=== PATIENT | male | born 1930 | race Caucasian/White ===

== ENCOUNTER 2021-09-12 23:00 | Emergency (ER) | payer OTHER, MEDICARE ==
[2021-09-12 23:17] VITALS: BP 175/96; PULSE 88; TEMP 98.1; BMI 27.4
== END 2021-09-13 02:24 | disposition home or self-care (01) ==
LOC: JER 23:00
DX: R42 Dizziness and giddiness (principal); W19.XXXA Unspecified fall, initial encounter
CPT/HCPCS: 70450-TC; 72125-TC; 93005; 93010; 99284-25

== ENCOUNTER → 2021-12-12 | Day surgery (SDC) | payer OTHER, MEDICARE | END | disposition home or self-care (01) | LOC: JRADIR 13:12 | PROVIDERS: ATTEND Internal Medicine Endocrinology, Diabetes & Metabolism | PROC: 0G9G3ZX Drainage of Left Thyroid Gland Lobe, Percutaneous Approach, Diagnostic (ICD-10-PCS; principal; 2021-12-12) | DX: E04.1 Nontoxic single thyroid nodule (principal) | CPT/HCPCS: 10005; 76942; 88173; 88305-TC ==

== ENCOUNTER 2022-04-21 13:04 | Inpatient (IN) | payer OTHER, MEDICARE ==
[2022-04-21] MEDS ORDERED: FUROSEMIDE 40 MG/4 ML INJECTABLE VIAL IVPUSH ONE (14:25)
[2022-04-21] MEDS ORDERED: FUROSEMIDE 40 MG/4 ML INJECTABLE VIAL ONE (15:16)
[2022-04-21 15:24] LABS: VENOUS BASE EXCESS 3.7 mmol/L (-2-2); VENOUS O2 SATURATION 72.8 % (70-80); VENOUS PH 7.279 (7.310-7.410)
[2022-04-21 15:25] LABS: BASO % 1.2 % (0-2.0); EOS % 2.3 % (0-4.5); HEMATOCRIT 47.5 % (35.4-49); HEMOGLOBIN 15.6 GM/dL (11.7-16.9); LYMPH % 21.7 % (8-40); MCH 29.9 pg (25.7-33.7); MCHC 32.9 g/dl (32.0-35.9); MEAN PLT VOLUME 9.3 fl (7.5-11.1); MONO % 9.9 % (3.8-10.2); NEUT % 64.9 % (42.8-82.8); PLATELET COUNT 222 10^3/uL (134-434); RBC 5.22 M/mm3 (4.00-5.60); RDW 14.7 % (11.9-15.9); WHITE BLOOD COUNT 6.5 K/mm3 (4.0-10.0)
[2022-04-21 15:26] LABS: VENOUS PCO2 72.5 mmHg (38-52)
[2022-04-21 15:51] LABS: CALCIUM 8.7 mg/dL (8.5-10.1)
[2022-04-21 15:52] LABS: BLOOD UREA NITROGEN 14.2 mg/dL (7-18)
[2022-04-21 15:55] LABS: CREATININE 0.9 mg/dL (0.55-1.3)
[2022-04-21 15:56] LABS: BILIRUBIN,TOTAL 0.4 mg/dL (0.2-1); TOT PROT 7.9 g/dl (6.4-8.2)
[2022-04-21 18:36] LABS: INR 1.05 (0.83-1.09); PROTHROMBIN TIME (PATIENT) 12.1 SEC (9.7-13.0)
[2022-04-21 18:39] LABS: ACTIVATED PTT 33.8 SECONDS (25.2-36.5)
[2022-04-21] MEDS ORDERED: LOSARTAN POTASSIUM 25 MG TABLET PO ONE (18:40)
[2022-04-21] MEDS ORDERED: LOSARTAN POTASSIUM 50 MG TABLET ONE (19:20)
[2022-04-21] MEDS: NEBIVOLOL 10 MG TABLET (FP) PO SCH (23:46)
[2022-04-22] MEDS ORDERED: POLYETHYLENE GLYCOL (HEALTHYLAX) 3350 17 GM PACKET PO PRN (03:11)
[2022-04-22] MEDS ORDERED: ACETAMINOPHEN 325 MG TABLET (FP) PO PRN (03:11)
[2022-04-22] MEDS ORDERED: MELATONIN 5 MG TABLETS PO PRN (04:01)
[2022-04-22] MEDS: INSULIN SLIDING SCALE (NOVOLOG) 1 VIAL SQ SCH ×5 (05:57→22:43)
[2022-04-22] MEDS ORDERED: amLODIPine BESYLATE 10 MG TABLET (FP) PO ONE (08:00)
[2022-04-22 08:30] LABS: BASO % 0.7 % (0-2.0); EOS % 0.9 % (0-4.5); HEMATOCRIT 47.3 % (35.4-49); HEMOGLOBIN 15.4 GM/dL (11.7-16.9); LYMPH % 11.9 % (8-40); MCH 29.6 pg (25.7-33.7); MCHC 32.5 g/dl (32.0-35.9); MEAN PLT VOLUME 8.7 fl (7.5-11.1); MONO % 7.3 % (3.8-10.2); NEUT % 79.2 % (42.8-82.8); PLATELET COUNT 175 10^3/uL (134-434); RBC 5.19 M/mm3 (4.00-5.60); RDW 14.1 % (11.9-15.9); WHITE BLOOD COUNT 8.7 K/mm3 (4.0-10.0)
[2022-04-22 08:41] LABS: CALCIUM 8.5 mg/dL (8.5-10.1)
[2022-04-22 08:42] LABS: BLOOD UREA NITROGEN 11.7 mg/dL (7-18); MAGNESIUM 2.3 mg/dL (1.8-2.4)
[2022-04-22 08:45] LABS: CREATININE 0.8 mg/dL (0.55-1.3)
[2022-04-22] MEDS ORDERED: LOSARTAN POTASSIUM 50 MG TABLET ONE (09:49)
[2022-04-22] MEDS ORDERED: amLODIPine BESYLATE 5 MG TABLET (FP) ONE (09:49)
[2022-04-22] MEDS ORDERED: ENOXAPARIN NA (PORCINE) 40 MG/0.4 ML DISP.SYRIN SQ ONE (09:50)
[2022-04-22] MEDS: amLODIPine BESYLATE 5 MG TABLET (FP) PO SCH (09:58)
[2022-04-22] MEDS: NEBIVOLOL 10 MG TABLET (FP) PO SCH ×3 (09:58→22:44)
[2022-04-22] MEDS: LOSARTAN POTASSIUM 50 MG TABLET PO SCH (09:58)
[2022-04-22] MEDS: ENOXAPARIN NA (PORCINE) 40 MG/0.4 ML DISP.SYRIN SQ SCH (09:58)
[2022-04-22] MEDS ORDERED: ALBUTEROL SO4 0.083% IH SOL 2.5 MG/3 ML VIAL.NEB. NEB PRN (11:00)
[2022-04-22] MEDS: PANTOPRAZOLE 40 MG TABLET PO SCH (11:36)
[2022-04-22] MEDS ORDERED: PANTOPRAZOLE 40 MG TABLET PO ONE (11:36)
[2022-04-22] MEDS ORDERED: methylPREDNISolone NA SUCC 40 MG/1 ML VIAL ONE (11:36)
[2022-04-22] MEDS: methylPREDNISolone NA SUCC 40 MG/1 ML VIAL IVPUSH SCH ×2 (11:36→18:43)
[2022-04-22] MEDS ORDERED: FUROSEMIDE 40 MG/4 ML INJECTABLE VIAL ONE (15:44)
[2022-04-22] MEDS: FUROSEMIDE 40 MG/4 ML INJECTABLE VIAL IVPUSH SCH (15:50)
[2022-04-22 18:39] VITALS: BMI 27.1
[2022-04-22 23:02] LABS: ARTERIAL BLOOD GAS BASE EXCESS 6.5 mmol/L (-2-2); ARTERIAL BLOOD GAS PO2 65.6 mmHg (80-100); ARTERIAL BLOOD GAS pH 7.299 (7.350-7.450)
[2022-04-23] MEDS: methylPREDNISolone NA SUCC 40 MG/1 ML VIAL IVPUSH SCH ×2 (01:00→10:08)
[2022-04-23 05:11] LABS: ARTERIAL BLOOD GAS BASE EXCESS 5.1 mmol/L (-2-2); ARTERIAL BLOOD GAS PO2 91.3 mmHg (80-100); ARTERIAL BLOOD GAS pH 7.308 (7.350-7.450)
[2022-04-23 05:13] LABS: VENT MODE S/T; VENT RATE 18
[2022-04-23] MEDS: INSULIN SLIDING SCALE (NOVOLOG) 1 VIAL SQ SCH ×4 (06:17→21:39)
[2022-04-23 08:21] LABS: HEMOGLOBIN 14.9 GM/dL (11.7-16.9); MCH 29.6 pg (25.7-33.7); MCHC 32.4 g/dl (32.0-35.9); MEAN CELL VOLUME 91.3 fl (80-96); PLATELET COUNT 220 10^3/uL (134-434); RBC 5.04 M/mm3 (4.00-5.60); RDW 14.5 % (11.9-15.9); WHITE BLOOD COUNT 11.1 K/mm3 (4.0-10.0)
[2022-04-23 08:41] LABS: BLOOD UREA NITROGEN 23.3 mg/dL (7-18)
[2022-04-23] MEDS: PANTOPRAZOLE 40 MG TABLET PO SCH (10:08)
[2022-04-23] MEDS: amLODIPine BESYLATE 5 MG TABLET (FP) PO SCH (10:08)
[2022-04-23] MEDS: NEBIVOLOL 10 MG TABLET (FP) PO SCH ×2 (10:08→21:35)
[2022-04-23] MEDS: LOSARTAN POTASSIUM 50 MG TABLET PO SCH (10:08)
[2022-04-23] MEDS: FUROSEMIDE 40 MG/4 ML INJECTABLE VIAL IVPUSH SCH (10:08)
[2022-04-23] MEDS: ENOXAPARIN NA (PORCINE) 40 MG/0.4 ML DISP.SYRIN SQ SCH (10:14)
[2022-04-23] MEDS: ALBUTEROL SO4 2.5/IPRATROPIUM 0.5 INH SOL 3 ML VIAL.NEB. NEB SCH ×3 (11:50→20:30)
[2022-04-24] MEDS: INSULIN SLIDING SCALE (NOVOLOG) 1 VIAL SQ SCH ×4 (06:04→21:27)
[2022-04-24] MEDS: ALBUTEROL SO4 2.5/IPRATROPIUM 0.5 INH SOL 3 ML VIAL.NEB. NEB SCH ×4 (08:56→20:05)
[2022-04-24] MEDS: amLODIPine BESYLATE 5 MG TABLET (FP) PO SCH (09:48)
[2022-04-24] MEDS: NEBIVOLOL 10 MG TABLET (FP) PO SCH ×2 (09:48→21:25)
[2022-04-24] MEDS: LOSARTAN POTASSIUM 50 MG TABLET PO SCH (09:48)
[2022-04-24] MEDS: FUROSEMIDE 40 MG/4 ML INJECTABLE VIAL IVPUSH SCH (09:48)
[2022-04-24] MEDS: ENOXAPARIN NA (PORCINE) 40 MG/0.4 ML DISP.SYRIN SQ SCH (09:49)
[2022-04-24] MEDS: PANTOPRAZOLE 40 MG TABLET PO SCH (09:49)
[2022-04-24] MEDS: BRIMONIDINE TARTRATE 0.2% OPHTHALMIC 5 ML BOTTLE OU SCH ×2 (09:50→21:42)
[2022-04-24] MEDS: DORZOLAMIDE 2% HCL OPHTHALMIC SOLUTION 10 ML BOTTLE OU SCH ×2 (09:50→21:43)
[2022-04-24] MEDS: TIMOLOL 0.5% OPHTHALMIC SOL 5 ML BOTTLE OU SCH ×2 (09:50→21:43)
[2022-04-24] MEDS ORDERED: PATIENT'S OWN MEDICATION (NON-FORMULARY) (Dorzolamide Hcl/Timolol Maleat [Cosopt Eye Drops OU SCH (10:00)
[2022-04-25] MEDS: INSULIN SLIDING SCALE (NOVOLOG) 1 VIAL SQ SCH ×3 (06:19→17:42)
[2022-04-25] MEDS: ALBUTEROL SO4 2.5/IPRATROPIUM 0.5 INH SOL 3 ML VIAL.NEB. NEB SCH ×3 (08:00→15:40)
[2022-04-25] MEDS: PANTOPRAZOLE 40 MG TABLET PO SCH (09:05)
[2022-04-25] MEDS: LOSARTAN POTASSIUM 50 MG TABLET PO SCH (09:05)
[2022-04-25] MEDS: ENOXAPARIN NA (PORCINE) 40 MG/0.4 ML DISP.SYRIN SQ SCH (09:05)
[2022-04-25] MEDS: amLODIPine BESYLATE 5 MG TABLET (FP) PO SCH (09:05)
[2022-04-25] MEDS: NEBIVOLOL 10 MG TABLET (FP) PO SCH (09:05)
[2022-04-25] MEDS: DORZOLAMIDE 2% HCL OPHTHALMIC SOLUTION 10 ML BOTTLE OU SCH (09:06)
[2022-04-25] MEDS: TIMOLOL 0.5% OPHTHALMIC SOL 5 ML BOTTLE OU SCH (09:06)
[2022-04-25] MEDS: BRIMONIDINE TARTRATE 0.2% OPHTHALMIC 5 ML BOTTLE OU SCH (09:06)
[2022-04-25] MEDS ORDERED: FUROSEMIDE 40 MG TABLET (FP) PO SCH (10:00)
[2022-04-25 14:39] VITALS: BP 113/60; PULSE 56; RESP 16; TEMP 98
== END 2022-04-25 18:36 | disposition home health service (06) | DRG 291 ==
LOC: JER 13:04 → JERBED 16:11 → J4W 04-22 18:24
PROVIDERS: ADMIT Internal Medicine; ATTEND Family Medicine
DX: I11.0 Hypertensive heart disease with heart failure (principal); I50.33 Acute on chronic diastolic (congestive) heart failure; J96.01 Acute respiratory failure with hypoxia; J96.02 Acute respiratory failure with hypercapnia; F05 Delirium due to known physiological condition; E87.0 Hyperosmolality and hypernatremia; E87.2 Acidosis; E78.5 Hyperlipidemia, unspecified; J44.9 Chronic obstructive pulmonary disease, unspecified; E11.9 Type 2 diabetes mellitus without complications; N40.0 Benign prostatic hyperplasia without lower urinary tract symptoms; G47.00 Insomnia, unspecified; W18.30XA Fall on same level, unspecified, initial encounter; Y92.098 Other place in other non-institutional residence as the place of occurrence of the external cause; E87.70 Fluid overload, unspecified; Z86.79 Personal history of other diseases of the circulatory system
CPT/HCPCS: 0241U-QW; 36415; 36600; 70450-TC; 71045-TC-FY; 71046-TC-FY; 80048; 80053; 82803; 82962; 83735; 83880; 84484; 85025; 85027; 85610; 85730; 93005; 93010; 93306-TC; 94640; 94660; 94761; 97116-GP; 97162-GP; 99285-25